=== PATIENT | female | born 1995 | race Caucasian/White ===

== ENCOUNTER 2016-04-23 12:05 | Observation (INO) | payer OTHER ==
[~2016-04-23] VITALS: Ht 160 cm; Wt 69.9 kg
[2016-04-23] MEDS ORDERED: PRENATAL VITAMI1 TA2 PO (12:27)
== END 2016-04-23 17:20 | disposition home or self-care (01) ==
LOC: MLD 12:05
PROVIDERS: ADMIT Obstetrics & Gynecology; ATTEND Obstetrics & Gynecology
DX: O26.892 Other specified pregnancy related conditions, second trimester (principal); R10.9 Unspecified abdominal pain; Z3A.27 27 weeks gestation of pregnancy
CPT/HCPCS: 76805; G0378; Q0092

== ENCOUNTER 2016-06-25 14:00 | Observation (INO) | payer OTHER ==
[~2016-06-25] VITALS: Ht 160 cm; Wt 77.1 kg
[~2016-06-25 14:00] MED LIST: PREN-546 PO
[2016-06-25 14:39] VITALS: BP 118/74
[2016-07-11] MEDS ORDERED: ALBU0.0912 INH (07:51)
[2016-07-11] MEDS ORDERED: BUDE90PO IH (07:51)
[2016-07-13] MEDS ORDERED: IBUP-2213 PO (12:13)
== END 2016-06-25 17:05 | disposition home or self-care (01) ==
LOC: MLD 14:00
PROVIDERS: ADMIT Obstetrics & Gynecology; ATTEND Obstetrics & Gynecology
DX: O36.8190 Decreased fetal movements, unspecified trimester, not applicable or unspecified (principal); Z3A.00 Weeks of gestation of pregnancy not specified
CPT/HCPCS: 76819; G0378; Q0092

== ENCOUNTER 2016-07-08 08:38 | Observation (INO) | payer OTHER ==
[~2016-07-08] VITALS: Ht 160 cm; Wt 78.0 kg
[2016-07-08] MEDS ORDERED: TERBUTALINE 1 MG/ML VIAL SUBQ SCH (09:15)
[2016-07-08] MEDS ORDERED: TERBUTALINE 1 MG/ML VIAL SUBQ ONE (09:38)
[2016-07-11] MEDS ORDERED: ALBU0.0912 INH (07:51)
[2016-07-11] MEDS ORDERED: BUDE90PO IH (07:51)
[2016-07-13] MEDS ORDERED: IBUP-2213 PO (12:13)
== END 2016-07-08 20:05 | disposition home or self-care (01) ==
LOC: MLD 08:38
PROVIDERS: ADMIT Obstetrics & Gynecology; ATTEND Obstetrics & Gynecology
DX: O26.893 Other specified pregnancy related conditions, third trimester (principal); R10.9 Unspecified abdominal pain; Z3A.37 37 weeks gestation of pregnancy
CPT/HCPCS: 76805; 96372; G0378; J3105; Q0092; 81000

== ENCOUNTER 2016-07-11 00:20 | Inpatient (IN) | payer OTHER ==
[~2016-07-11] VITALS: Ht 160 cm; Wt 78.0 kg
[~2016-07-11 00:20] MED LIST changes: -PREN-546 PO; +PRENATAL VITAMI1 TA2 PO
[2016-07-11] MEDS ORDERED: METHYLERGONOVINE 0.2 MG/ML AMP IM PRN ×2 (00:45→14:55)
[2016-07-11] MEDS ORDERED: PROMETHAZINE 25 MG/ML VIAL IVP PRN (00:45)
[2016-07-11] MEDS ORDERED: CARBOPROST 250 MCG/ML AMP IM PRN (00:45)
[2016-07-11] MEDS ORDERED: NALBUPHINE HYDROCHLORIDE 10 MG/ML VIAL IVP PRN (00:45)
[2016-07-11] MEDS ORDERED: OXYTOCIN 20 UNITS/LR PREMIX 1,000 ML IV PRN (00:45)
[2016-07-11] MEDS ORDERED: AMPICILLIN 2,000 MG in NACL 0.9% MINI-BAG PLUS 100 ML IV SCH (00:45)
[2016-07-11] MEDS ORDERED: AMPICILLIN 2,000 MG VIAL ONE (01:25)
[2016-07-11] MEDS ORDERED: MISOPROSTOL 25 MCG TAB VG PRN (01:25)
[2016-07-11] MEDS: LACTATED RINGERS 1,000 ML IV SCH ×2 (02:06→08:37)
[2016-07-11 02:21] VITALS: BP 121/78
[2016-07-11] MEDS ORDERED: ROPIVACAINE 0.2%/NS PREMIX 250 ML EPI ONE (02:42)
[2016-07-11] MEDS ORDERED: ROPIVACAINE 0.2%/NS PREMIX 250 ML EPI SCH (03:00)
[2016-07-11] MEDS ORDERED: OXYTOCIN 20 UNITS/LR PREMIX 1,000 ML IV ONE (03:31)
[2016-07-11] MEDS ORDERED: AMPICILLIN 1,000 MG VIAL ONE ×2 (06:59→10:01)
[2016-07-11] MEDS ORDERED: PROVENTIL HFA M18 GM INH (07:51)
[2016-07-11] MEDS ORDERED: PULMICORT90 MCG/Act IH (07:51)
[2016-07-11] MEDS ORDERED: ALBUTEROL HFA MDI 90 MCG/ACTUATION 8 GM INH PRN (09:45)
[2016-07-11] MEDS ORDERED: AMPICILLIN 1,000 MG in NACL 0.9% 50 ML IV SCH (10:00)
[2016-07-11] MEDS ORDERED: OXYTOCIN 10 UNITS/ML VIAL ONE (13:00)
[2016-07-11] MEDS ORDERED: MEASLES, MUMPS, AND RUBELLA 1 VIAL SQVAC PRN (14:55)
[2016-07-11] MEDS ORDERED: WITCH HAZEL 40 PAD PACKAGE TP PRN (14:55)
[2016-07-11] MEDS ORDERED: IBUPROFEN 800 MG TAB PO PRN (14:55)
[2016-07-11] MEDS ORDERED: OXYTOCIN 10 UNITS/ML VIAL IM PRN (14:55)
[2016-07-11] MEDS ORDERED: TEMAZEPAM 15 MG CAP PO PRN (14:55)
[2016-07-11] MEDS ORDERED: BENZOCAINE/MENTHOL 20%-0.5% 60 GM CAN TP PRN (14:55)
[2016-07-11] MEDS: oxyCODONE/APAP 5/325 MG 1 TAB TAB PO PRN ×2 (15:45→22:01)
[2016-07-11] MEDS ORDERED: oxyCODONE/APAP 5/325 MG 1 TAB TAB ONE (15:47)
[2016-07-11] MEDS ORDERED: DOCUSATE SOD/SENNA 50/8.6 MG 1 TAB PO SCH (21:00)
[2016-07-12] MEDS: HYDROcodone/APAP 5/325 MG 1 TAB TAB PO PRN ×3 (04:54→20:37)
--- NOTE | 2016-07-12 08:13 | NUR ---
PATIENT HAS BEEN SCREENED AND CATEGORIZED LOW NUTRITION RISK. PATIENT WILL BE SEEN WITHIN 7 DAYS OF ADMISSION. 07/17/[address]
[2016-07-12] MEDS ORDERED: DOCUSATE SOD/SENNA 50/8.6 MG 1 TAB PO PRN (21:00)
[2016-07-13] MEDS: HYDROcodone/APAP 5/325 MG 1 TAB TAB PO PRN (05:02)
[2016-07-13] MEDS ORDERED: MOTRIN600 MG PO (12:13)
== END 2016-07-13 13:50 | disposition home or self-care (01) | DRG 775 ==
LOC: MLD 00:20 → MFCC 16:06
PROVIDERS: ADMIT Obstetrics & Gynecology; ATTEND Obstetrics & Gynecology
PROC: 10E0XZZ Delivery of Products of Conception, External Approach (ICD-10-PCS; principal; 2016-07-11)
PROC: 0KQM0ZZ Repair Perineum Muscle, Open Approach (ICD-10-PCS; 2016-07-11)
PROC: 10907ZC Drainage of Amniotic Fluid, Therapeutic from Products of Conception, Via Natural or Artificial Opening (ICD-10-PCS; 2016-07-11)
PROC: 00HU33Z Insertion of Infusion Device into Spinal Canal, Percutaneous Approach (ICD-10-PCS; 2016-07-11)
PROC: 3E0R3CZ (ICD-10-PCS; 2016-07-11)
PROC: 3E0234Z Introduction of Serum, Toxoid and Vaccine into Muscle, Percutaneous Approach (ICD-10-PCS; 2016-07-13)
DX: O69.81X0 Labor and delivery complicated by cord around neck, without compression, not applicable or unspecified (principal); O70.1 Second degree perineal laceration during delivery; Z3A.38 38 weeks gestation of pregnancy; Z37.0 Single live birth; Z23 Encounter for immunization